=== PATIENT | male | born 1930 | race Caucasian/White ===

== ENCOUNTER → 2017-11-12 | Outpatient (CLI) | payer MEDICARE ==
[2015-02-15 12:19] VITALS: BP 136/64
[~2017-11-12] MED LIST: ASPI325T8 PO; CARV25TA2 PO; CLOP75TA57 PO; GLIM2TAB2 PO; HYDR12.58 PO; ISOS120T2 PO; METF10002 PO; NITR0.4T22 SL; PRAV40TA2 PO
--- NOTE | 2017-11-12 12:31 | RAD ---
Exam : Carotid Duplex with Grayscale Ultrasound and Spectral and Color Doppler Analysis: Clinical Indications: Carotid stenosis. Comparison study: Carotid duplex ultrasound October 21, 2012 PQRS Compliance Statement - Stenosis calculations for CT, MR and conventional angiography are based upon measurement of the distal ICA diameter in accordance with the NASCET methodology. Stenosis calculations for carotid ultrasound studies are derived from validated velocity criteria which are known to correlate with the NASCET methodology. Findings: The common, internal and external carotid arteries were examined by grayscale, color and spectral Doppler ultrasound. There is extensive diffuse atherosclerotic vascular disease. There is a left common carotid stent extending into the internal carotid artery. No sonographic evidence of hematoma is a significant stenosis is seen on the left. Right there is a focus of elevated velocity within the distal most common carotid artery or proximal most internal carotid artery measuring up to 160 cm/s. Flow in the vertebral arteries is antegrade bilaterally The following are the velocities and ratios in the carotid arteries on both sides: RIGHT ICA PV: 160cm/sec RIGHT CCA PV: 59cm/sec RIGHT ICA ED: 25cm/sec RIGHT IC/CCPV: 2.7 RIGHT VERTEBRAL: antegrade flow RIGHT % STENOSIS: [Less than 50%] LEFT ICA PV: 108cm/sec LEFT CCA PV: 120cm/sec LEFT ICA ED: 21cm/sec LEFT IC/CCPV: Less than 2 LEFT VERTEBRAL: antegrade flow LEFT % STENOSIS: [Less than 50%] <50% ICA Stenosis: PSV < 125cm/s (EDV < 40cm/s; SVR < 2.0) 50-69% ICA Stenosis: PSV < 125-229cm/s (EDV 40-99cm/s; SVR 2.0-3.9) >70% ICA Stenosis: PSV > 230cm/s (EDV >100cm/s; SVR >4.0) Impression: 1. Diffuse chronic vascular disease 2. Ultrasound findings suggest 50-69% stenosis of the proximal most right internal carotid artery, versus the distalmost common carotid artery. Recommend CT angiography for further characterization 3. Patent appearance of right common and internal carotid artery stent
== END | disposition home or self-care (01) ==
LOC: US 10:00
PROVIDERS: ATTEND Internal Medicine Cardiovascular Disease
DX: I65.23 Occlusion and stenosis of bilateral carotid arteries (principal); Z87.891 Personal history of nicotine dependence
CPT/HCPCS: 93880

== ENCOUNTER → 2018-02-20 | Outpatient (CLI) | payer MEDICARE ==
[2015-02-15 12:19] VITALS: BP 136/64
[~2018-02-20] MED LIST changes: -METF10002 PO; +METF10003 PO
--- NOTE | 2018-02-20 12:04 | RAD ---
CHEST PA LATERAL Clinical indications: CHF COMPARISON: September 29, 2011. Findings: There is elevation of the right hemidiaphragm which is chronic. Associated chronic right lung base atelectasis is seen. No acute lung infiltrate or pleural effusion or pulmonary edema or lung mass or pneumothorax is seen. The heart size is mildly enlarged. 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 The pulmonary vasculature, mediastinum and both freddy are otherwise unremarkable. The osseous structures appear intact. Impression: No new radiographic abnormality is seen. Electronically signed by: Daniel Abreu MD (02/20/2018 12:01 PM) [id number]
== END | disposition home or self-care (01) ==
LOC: DXRAD 11:22
PROVIDERS: ATTEND Internal Medicine Cardiovascular Disease
DX: I11.9 Hypertensive heart disease without heart failure (principal); I50.32 Chronic diastolic (congestive) heart failure; E78.5 Hyperlipidemia, unspecified; E78.00 Pure hypercholesterolemia, unspecified; Z72.0 Tobacco use
CPT/HCPCS: 71046

== ENCOUNTER 2018-06-13 13:45 | Emergency (ER) | payer MEDICARE ==
[~2018-06-13 13:45] MED LIST changes: -METF10003 PO; +METF10007 PO
[2018-06-13] MEDS ORDERED: IV NORMAL SALINE 1,000ML 1,000 ML IV SCH (14:01)
[2018-06-13] MEDS ORDERED: ONDANSETRON PF 4 MG/2 ML VIAL. IV ONE (14:15)
[2018-06-13 14:27] VITALS: BP 155/61
[2018-06-13 14:29] LABS: BASO % 0 % (0-3); EOS # 0.2 x10^3/uL (0.0-0.7); EOS % 1 % (0-3); HEMATOCRIT 38.8 % (39.0-53.0); HEMOGLOBIN 12.8 g/dL (13.0-17.5); LYMPH # 0.6 x10^3/uL (1.0-4.8); LYMPH % 5 % (24-48); MEAN CORPUSCULAR HEMOGLOBIN 30 pg (25-35); MEAN CORPUSCULAR HGB CONC 33 g/dL (31-37); MEAN CORPUSCULAR VOLUME 92 fL (79-100); MONO # 1.1 x10^3/uL (0.0-1.1); MONO % 9 % (0-9); NEUT # 10.9 x10^3uL (1.8-7.7); NEUT % 85 % (31-73); PLATELET COUNT 239 x10^3/uL (140-400); RED BLOOD COUNT 4.21 x10^6/uL (4.30-5.70); RED CELL DISTRIBUTION WIDTH 14.9 % (11.5-14.5); WHITE BLOOD COUNT 12.9 x10^3/uL (4.0-11.0)
[2018-06-13 14:40] LABS: ALBUMIN 3.7 g/dL (3.4-5.0); ALBUMIN/GLOBULIN RATIO 0.9 (1.0-1.7); CALCIUM 9.4 mg/dL (8.5-10.1); CREATININE 2.2 mg/dL (0.7-1.3); GFR 28.3; POTASSIUM 5.6 mmol/L (3.5-5.1); TOTAL BILIRUBIN 0.8 mg/dL (0.2-1.0); TOTAL PROTEIN 7.6 g/dL (6.4-8.2)
[2018-06-13] MEDS ORDERED: FURO40TA4 PO (15:11)
[2018-06-13] MEDS ORDERED: LISI2.5T PO (15:11)
[2018-06-13 15:42] LABS: BILIRUBIN,URINE NEG (NEG); CLARITY,URINE CLEAR; COLOR,URINE STRAW; GLUCOSE,URINE NEG (NEG); NITRITE,URINE NEG (NEG); UROBILINOGEN,URINE 0.2 mg/dL (0.2 mg/dL); WBC,URINE OCC /HPF (0-4)
[2018-06-13 15:43] LABS: AMORPHOUS SEDIMENT,UR PRESENT /HPF; BACTERIA,URINE FEW /HPF (0-FEW); HYALINE CASTS, URINE OCC /HPF; SQUAMOUS EPITHELIAL CELL,UR OCC /LPF
--- NOTE | 2018-06-13 15:47 | RAD ---
CT study of the abdomen and pelvis without contrast INDICATIONS: Abdominal pain for one day and the lower midsection. History of hernia surgery in 2015. TECHNIQUE: Noncontrast helical CT scanning of the abdomen and pelvis was performed. Without contrast, the sensitivity to detect organ pathology and GI tract pathology is decreased. PQRS compliance Statement One or more of the following individualized dose reduction techniques were utilized for this study: 1. Automated exposure control 2. Adjustment of the mA and/or kV according to patient size 3. Use of iterative reconstruction technique COMPARISON: February 02, 2015. FINDINGS: The liver and spleen and pancreas are unremarkable on this noncontrast study. The gallbladder is surgically absent. No extrahepatic biliary ductal dilatation is seen. No adrenal mass is evident. No hydronephrosis or hydroureter is seen on either side. No renal mass is seen on either side on this noncontrast study. Urinary bladder is not abnormally distended. The prostate gland is enlarged and indents the floor of the urinary bladder. Prostate gland measures 5.2 cm in transverse dimension. No focal aneurysmal dilatation of the abdominal aorta is seen. No enlarged abdominal or pelvic lymphadenopathy is evident. Small hiatal hernia is evident. Right inguinal hernia is seen containing a loop of small bowel. Small bowel is dilated proximal to this point consistent with incarceration and bowel obstruction. The entire hernia sac is not seen on this study since it extends down into the scrotum. In addition, the terminal ileum and cecum extend into the hernia sac. The hernia sac measures 9 cm in transverse dimension. The appendix is located within the hernia sac as well as is not abnormally thickened. A left inguinal hernia is seen containing fat. Small amount of fluid is present in this hernia sac as well but no bowel is present. No other free intraperitoneal fluid is seen. No free air is seen. No osteolytic process is seen. Chronic infiltrate and bronchiectasis of the right lower lobe is evident. There is mild distal airway disease now present within the left lower lobe. No osteolytic process is evident. IMPRESSION: Large right inguinal hernia containing loops of large and small bowel resulting in a distal partial small bowel obstruction. The appendix is also located within the hernia sac and is otherwise unremarkable. Left inguinal hernia containing only fat and small amount of fluid. Small hiatal hernia. Chronic infiltrate and distal airway disease and bronchiectasis of the right lower lobe. New finding of mild distal airway disease of the left lower lobe. Electronically signed by: Daniel Abreu MD (06/13/2018 3:44 PM) [facility]
--- NOTE | 2018-06-13 16:08 | PHYS DOC ---
Past History Past Medical History: Angina, GERD, Heart Disease, Hypertension, Stroke, Other Past Surgical History: Other Alcohol Use: None Drug Use: None Adult General Chief Complaint Chief Complaint: ABDOMINAL PAIN HPI HPI 87-year-old male with a history of incarcerated inguinal hernia that was repaired by Dr. Ayala in 2014 presents with several day history of increasing pain in his right lower quadrant. He states he tried enema this morning without relief. He has not been stooling normally. He has had some nausea but no vomiting. He denies any gross hematuria. He denies any melena or hematochezia. He states that that pain has been fairly severe. When the pain happens he has no way to make it better. He states touching anywhere near his scrotum causes severe pain.[] Review of Systems Review of Systems Constitutional: Denies fever or chills [] Eyes: Denies change in visual acuity, redness, or eye pain [] HENT: Denies nasal congestion or sore throat [] Respiratory: Denies cough or shortness of breath [] Cardiovascular: No additional information not addressed in HPI [] GI: Denies abdominal pain, nausea, vomiting, bloody stools or diarrhea [] : Hernia[] Musculoskeletal: Denies back pain or joint pain [] Integument: Denies rash or skin lesions [] Neurologic: Denies headache, focal weakness or sensory changes [] Endocrine: Denies polyuria or polydipsia [] All other systems were reviewed and found to be within normal limits, except as documented in this note. Current Medications Current Medications Current Medications Medications (Trade) Dose Ordered Sig/Amado Start Time Stop Time Status Last Admin Dose Admin Fentanyl Citrate (Fentanyl 2ml Vial) 25 mcg PRN Q15MIN PRN 06/13/18 14:15 06/14/18 14:14 06/13/18 14:30 25 MCG Ondansetron HCl (Zofran) 4 mg 1X ONCE 06/13/18 14:15 06/13/18 14:16 DC 06/13/18 14:30 4 MG Sodium Chloride 1,000 ml @ 1,000 mls/hr Q1H 06/13/18 14:01 06/13/18 15:00 DC 06/13/18 14:31 1,000 MLS/HR Allergies Allergies Allergies Coded Allergies Type Severity Reaction Last Updated Verified niacin Allergy Mild Rash 02/15/15 Yes Physical Exam Physical Exam Constitutional: Well developed, well nourished, no acute distress, non-toxic appearance. [] HENT: Normocephalic, atraumatic, bilateral external ears normal, oropharynx moist, no oral exudates, nose normal. [] Eyes: PERRLA, EOMI, conjunctiva normal, no discharge. [] Neck: Normal range of motion, no tenderness, supple, no stridor. [] Cardiovascular:Heart rate regular rhythm, no murmur [] Lungs & Thorax: Bilateral breath sounds clear to auscultation [] Abdomen: Bowel sounds normal, soft, no tenderness, no masses, no pulsatile masses, he has a large right inguinal hernia that is very painful to touch however I am able to reduce this when he is lying flat. However any time that he bears down the hernia recurs.. [] Skin: Warm, dry, no erythema, no rash. [] Back: No tenderness, no CVA tenderness. [] Extremities: No tenderness, no cyanosis, no clubbing, ROM intact, no edema. [] Neurologic: Alert and oriented X 3, normal motor function, normal sensory function, no focal deficits noted. [] Psychologic: Affect normal, judgement normal, mood normal. [] Current Patient Data Vital Signs Vital Signs Date Time Temp Pulse Resp B/P (MAP) Pulse Ox O2 Delivery O2 Flow Rate FiO2 06/13/18 14:27 70 24 100 Room Air Lab Results Laboratory Tests Test 06/13/18 14:14 06/13/18 15:23 White Blood Count 12.9 x10^3/uL (4.0-11.0) H Red Blood Count 4.21 x10^6/uL (4.30-5.70) L Hemoglobin 12.8 g/dL (13.0-17.5) L Hematocrit 38.8 % (39.0-53.0) L Mean Corpuscular Volume 92 fL (79-100) Mean Corpuscular Hemoglobin 30 pg (25-35) Mean Corpuscular Hemoglobin Concent 33 g/dL (31-37) Red Cell Distribution Width 14.9 % (11.5-14.5) H Platelet Count 239 x10^3/uL (140-400) Neutrophils (%) (Auto) 85 % (31-73) H Lymphocytes (%) (Auto) 5 % (24-48) L Monocytes (%) (Auto) 9 % (0-9) Eosinophils (%) (Auto) 1 % (0-3) Basophils (%) (Auto) 0 % (0-3) Neutrophils # (Auto) 10.9 x10^3uL (1.8-7.7) H Lymphocytes # (Auto) 0.6 x10^3/uL (1.0-4.8) L Monocytes # (Auto) 1.1 x10^3/uL (0.0-1.1) Eosinophils # (Auto) 0.2 x10^3/uL (0.0-0.7) Basophils # (Auto) 0.0 x10^3/uL (0.0-0.2) Sodium Level 139 mmol/L (136-145) Potassium Level 5.6 mmol/L (3.5-5.1) H Chloride Level 103 mmol/L (98-107) Carbon Dioxide Level 27 mmol/L (21-32) Anion Gap 9 (6-14) Blood Urea Nitrogen 57 mg/dL (8-26) H Creatinine 2.2 mg/dL (0.7-1.3) H Estimated GFR (Cockcroft-Gault) 28.3 BUN/Creatinine Ratio 26 (6-20) H Glucose Level 282 mg/dL (70-99) H Calcium Level 9.4 mg/dL (8.5-10.1) Total Bilirubin 0.8 mg/dL (0.2-1.0) Aspartate Amino Transferase (AST) 11 U/L (15-37) L Alanine Aminotransferase (ALT) 12 U/L (16-63) L Alkaline Phosphatase 81 U/L (46-116) Total Protein 7.6 g/dL (6.4-8.2) Albumin 3.7 g/dL (3.4-5.0) Albumin/Globulin Ratio 0.9 (1.0-1.7) L Lipase 201 U/L (73-393) Urine Collection Type Unknown Urine Color Straw Urine Clarity Clear Urine pH 5.0 Urine Specific [place] 1.020 Urine Protein Trace (NEG-TRACE) Urine Glucose (UA) Neg mg/dL (NEG) Urine Ketones (Stick) Neg mg/dL (NEG) Urine Blood Neg (NEG) Urine Nitrite Neg (NEG) Urine Bilirubin Neg (NEG) Urine Urobilinogen Dipstick 0.2 mg/dL (0.2 mg/dL) Urine Leukocyte Esterase Neg (NEG) Urine RBC 3-5 /HPF (0-2) Urine WBC Occ /HPF (0-4) Urine Squamous Epithelial Cells Occ /LPF Urine Amorphous Sediment Present /HPF Urine Bacteria Few /HPF (0-FEW) Urine Hyaline Casts Occ /HPF Urine Mucus Slight /LPF EKG EKG [] Radiology/Procedures Radiology/Procedures [] Impressions: PROCEDURE: CT ABDOMEN PELVIS WO CONTRAST CT study of the abdomen and pelvis without contrast INDICATIONS: Abdominal pain for one day and the lower midsection. History of hernia surgery in 2015. TECHNIQUE: Noncontrast helical CT scanning of the abdomen and pelvis was performed. Without contrast, the sensitivity to detect organ pathology and GI tract pathology is decreased. PQRS compliance Statement One or more of the following individualized dose reduction techniques were utilized for this study: 1. Automated exposure control 2. Adjustment of the mA and/or kV according to patient size 3. Use of iterative reconstruction technique COMPARISON: February 02, 2015. FINDINGS: The liver and spleen and pancreas are unremarkable on this noncontrast study. The gallbladder is surgically absent. No extrahepatic biliary ductal dilatation is seen. No adrenal mass is evident. No hydronephrosis or hydroureter is seen on either side. No renal mass is seen on either side on this noncontrast study. Urinary bladder is not abnormally distended. The prostate gland is enlarged and indents the floor of the urinary bladder. Prostate gland measures 5.2 cm in transverse dimension. No focal aneurysmal dilatation of the abdominal aorta is seen. No enlarged abdominal or pelvic lymphadenopathy is evident. Small hiatal hernia is evident. Right inguinal hernia is seen containing a loop of small bowel. Small bowel is dilated proximal to this point consistent with incarceration and bowel obstruction. The entire hernia sac is not seen on this study since it extends down into the scrotum. In addition, the terminal ileum and cecum extend into the hernia sac. The hernia sac measures 9 cm in transverse dimension. The appendix is located within the hernia sac as well as is not abnormally thickened. A left inguinal hernia is seen containing fat. Small amount of fluid is present in this hernia sac as well but no bowel is present. No other free intraperitoneal fluid is seen. No free air is seen. No osteolytic process is seen. Chronic infiltrate and bronchiectasis of the right lower lobe is evident. There is mild distal airway disease now present within the left lower lobe. No osteolytic process is evident. IMPRESSION: Large right inguinal hernia containing loops of large and small bowel resulting in a distal partial small bowel obstruction. The appendix is also located within the hernia sac and is otherwise unremarkable. Left inguinal hernia containing only fat and small amount of fluid. Small hiatal hernia. Chronic infiltrate and distal airway disease and bronchiectasis of the right lower lobe. New finding of mild distal airway disease of the left lower lobe. Course & Med Decision Making Course & Med Decision Making Pertinent Labs and Imaging studies reviewed. (See chart for details) [ED course: Evaluation reveals an 87-year-old male with moderate to severe right lower quadrant abdominal pain likely secondary to painful right inguinal hernia. I gave the patient IV fluids and a couple doses of fentanyl during his stay in the department and with that I was able to reduce the hernia but it was very painful. However, the hernia reaccumulated shortly after I was able to reduce it. I then spoke with Dr. Kaiser who thought best that it be taken care of surgically sooner rather than later given the fact that he has a partial small bowel obstruction already. I then called the hospitalist at [place] who accepted the patient for transfer. Patient is in agreement with this.] Dragon Disclaimer Dragon Disclaimer This electronic medical record was generated, in whole or in part, using a voice recognition dictation system. Departure Departure: Impression: Primary Impression: Incarcerated inguinal hernia Additional Impression: Renal insufficiency Disposition: 05 XFER OTHER ([facility]) Admitting Physician: Other (Dr. Velazco) Condition: STABLE Referrals: CLEMENTINA CASTILLO MD (PCP) Problem Qualifiers ANDREW POP DO Jun 13, 2018 16:08
== END 2018-06-13 17:09 | disposition short-term general hospital (02) ==
LOC: ER 13:45
DX: K40.30 Unilateral inguinal hernia, with obstruction, without gangrene, not specified as recurrent (principal); N28.9 Disorder of kidney and ureter, unspecified; K56.600 Partial intestinal obstruction, unspecified as to cause; J47.9 Bronchiectasis, uncomplicated; K44.9 Diaphragmatic hernia without obstruction or gangrene; K21.9 Gastro-esophageal reflux disease without esophagitis; I11.9 Hypertensive heart disease without heart failure; Z86.73 Personal history of transient ischemic attack (TIA), and cerebral infarction without residual deficits; Z88.1 Allergy status to other antibiotic agents
CPT/HCPCS: 36415; 74176; 80053; 81001; 83690; 85025; 96374; 96375; 96376; 99285; J2405; J3010; J7030